=== PATIENT | female | born 1950 | race Two or more races ===

== ENCOUNTER 2019-04-27 07:33 | Outpatient (CLI) | payer OTHER | END 2019-04-27 07:36 | disposition home or self-care (01) | LOC: SONOGRAMA 07:33 | DX: E04.2 Nontoxic multinodular goiter (principal) ==

== ENCOUNTER 2020-06-27 08:24 | Outpatient (CLI) | payer OTHER | END 2020-06-27 08:31 | disposition home or self-care (01) | LOC: SONOGRAMA 08:24 | PROVIDERS: ATTEND Pathology Anatomic Pathology & Clinical Pathology | DX: E04.2 Nontoxic multinodular goiter (principal); E04.8 Other specified nontoxic goiter; E07.89 Other specified disorders of thyroid; E04.1 Nontoxic single thyroid nodule; E06.5 Other chronic thyroiditis; D34 Benign neoplasm of thyroid gland ==

== ENCOUNTER 2021-07-06 08:07 | Outpatient (CLI) | payer OTHER | END 2021-07-06 09:34 | disposition home or self-care (01) | LOC: SONOGRAMA 08:07 | PROVIDERS: ATTEND Pathology Anatomic Pathology & Clinical Pathology | DX: E04.2 Nontoxic multinodular goiter (principal) ==

== ENCOUNTER 2023-05-13 07:54 | Outpatient (CLI) | payer OTHER | END 2023-05-13 07:57 | disposition home or self-care (01) | LOC: SONOGRAMA 07:54 | PROVIDERS: ATTEND Pathology Anatomic Pathology & Clinical Pathology | DX: D34 Benign neoplasm of thyroid gland (principal); E06.3 Autoimmune thyroiditis ==

== ENCOUNTER 2024-07-06 07:25 | Outpatient (CLI) | payer OTHER | END 2024-07-06 07:29 | disposition home or self-care (01) | LOC: SONOGRAMA 07:25 | PROVIDERS: ATTEND Pathology Anatomic Pathology & Clinical Pathology | DX: E04.1 Nontoxic single thyroid nodule (principal); D34 Benign neoplasm of thyroid gland; E07.89 Other specified disorders of thyroid ==